=== PATIENT | male | born 1995 | race American Indian/Alaskan Native ===

== ENCOUNTER 2017-03-20 12:50 | Emergency (ER) | payer BC, OTHER ==
--- NOTE | 2017-03-20 14:05 | EDM.PDOC ---
ED HPI GENERAL MEDICAL PROBLEM - General Chief Complaint: Genitourinary Problem Stated Complaint: PAIN [id number] Time Seen by Provider: 03/20/17 14:05 Source of Information: Reports: Patient History Limitations: Reports: No Limitations - History of Present Illness INITIAL COMMENTS - FREE TEXT/NARRATIVE: pt states that he is having severe burning with urination. States that he was seen at the clinic on Wednesday and given a shot and 2 pills but on his symptoms became worse. c/o now that he has to "hold open the hole" in order to urinate. Onset: Gradual Onset Date: 03/17/17 Duration: Getting Worse Location: Reports: Pelvis Quality: Reports: Burning Severity: Severe Improves with: Reports: None Worsens with: Reports: Other (urination) Associated Symptoms: Reports: Malaise Penis Pain Score (Numeric/FACES): 10 - Related Data Allergies Allergy/AdvReac Type Severity Reaction Status Date / Time No Known Allergies Allergy Verified 03/20/17 13:34 Home Meds: Home Meds . [No Known Home Meds] 12/05/15 [History] Past Medical History - Past Health History Medical/Surgical History: Denies Medical/Surgical History - Infectious Disease History Infectious Disease History: Reports: None Social & Family History - Tobacco Use Smoking Status *Q: Never Smoker - Caffeine Use Caffeine Use: Reports: None - Recreational Drug Use Recreational Drug Use: No ED ROS GENERAL - Review of Systems Review Of Systems: See Below : Reports: Discharge, Dysuria, Pain ED EXAM, RENAL/ - Physical Exam Exam: See Below Exam Limited By: No Limitations General Appearance: Alert, WD/WN, No Apparent Distress (Male) Exam: No Hernia, Normal Inspection, Normal Prostate, Circumcised, Penile Lesions (2 small ulcers noted to left groin. small lesion noted to upper right groin area), Urethral Discharge Course - Vital Signs Text/Narrative:: BP 116/62 HR 96, T 98 Last Recorded V/S: Last Vital Signs Temp 99.9 F 03/20/17 15:30 Pulse 98 03/20/17 15:30 Resp 16 03/20/17 15:30 BP 119/62 03/20/17 15:30 Pulse Ox 98 03/20/17 15:30 - Orders/Labs/Meds Labs: Laboratory Tests 03/20/17 Range/Units 13:02 Urine Color Yellow (YELLOW) Urine Appearance Cloudy (CLEAR) Urine pH 8.5 (5.0-9.0) Ur Specific [place] 1.020 (1.005-1.030) Urine Protein 100 H (NEGATIVE) Urine Glucose (UA) Negative (NEGATIVE) Urine Ketones 40 H (NEGATIVE) Urine Occult Blood Trace-intact H (NEGATIVE) Urine Nitrite Negative (NEGATIVE) Urine Bilirubin Small H (NEGATIVE) Urine Urobilinogen 4.0 H (0.2-1.0) mg/dL Ur Leukocyte Esterase Trace H (NEGATIVE) Urine RBC 5-10 H /HPF Urine WBC >100 H (0-5/HPF) /HPF Ur Epithelial Cells Rare /HPF Urine Bacteria Few (0-FEW/HPF) /HPF Urine Mucus Moderate H /LPF - Re-Assessments/Exams Free Text/Narrative Re-Assessment/Exam: 03/20/17 15:25 UA reveal UTI, will treat and have pt follow up in clinic in 4-7 days Departure - Departure Time of Disposition: 15:26 Disposition: Home, Self-Care 01 Condition: Good Clinical Impression: UTI, Urinary tract infectious disease - Discharge Information Instructions: Urinary Tract Infection, Adult, [id number] Forms: ED Department Discharge Additional Instructions: Take medication for UTI and chancroid. Return in 4-7 days to clinic for re- evaluation. You may bring in your results of STI testing if you want
[2017-03-20 15:31] VITALS: BP 119/62
== END 2017-03-20 15:42 | disposition home or self-care (01) ==
LOC: DL.ED 12:50
DX: N39.0 Urinary tract infection, site not specified (principal)
CPT/HCPCS: 81001; 99283

== ENCOUNTER 2020-02-27 11:24 | Emergency (ER) | payer OTHER | END 2020-02-27 12:01 | disposition left against medical advice (07) | LOC: DL.ED 11:24 | DX: Z53.21 Procedure and treatment not carried out due to patient leaving prior to being seen by health care provider (principal) ==

== ENCOUNTER 2020-02-27 16:58 | Emergency (ER) | payer OTHER ==
[2020-02-27 17:20] VITALS: BP 142/82; PULSE 80
[2020-02-27] MEDS ORDERED: Bacitracin Oint 1 GM U/D Packet TOP ONE (17:39)
[2020-02-27] MEDS ORDERED: Lidocaine 1% 30 ML SDV INJECT ONE (17:39)
--- NOTE | 2020-02-27 17:56 | EDM.PDOC ---
ED HPI GENERAL MEDICAL PROBLEM - General Chief Complaint: Laceration Stated Complaint: CUT ON RIGHT KNEE Time Seen by Provider: 02/27/20 17:40 Source of Information: Reports: Patient History Limitations: Reports: No Limitations - History of Present Illness INITIAL COMMENTS - FREE TEXT/NARRATIVE: This 24 yo male patient reports to the ED with a laceration to his right thigh. The patient reports he tripped on a yard drag this morning. The patient cleaned the wound with peroxide and a bandage between the time of the incident and the visit. Onset: Today Onset Date: 02/27/20 Onset Time: 11:00 Duration: Other Location: Reports: Lower Extremity, Right Quality: Reports: Other Severity: Mild Improves with: Reports: None Worsens with: Reports: None Context: Reports: Other Associated Symptoms: Reports: No Other Symptoms - Related Data Allergies Allergy/AdvReac Type Severity Reaction Status Date / Time No Known Allergies Allergy Verified 02/27/20 17:20 Home Meds: Home Meds . [No Known Home Meds] 12/05/15 [History] Past Medical History - Past Health History Medical/Surgical History: Denies Medical/Surgical History HEENT History: Reports: None Cardiovascular History: Reports: None Respiratory History: Reports: None Gastrointestinal History: Reports: None Genitourinary History: Reports: None Musculoskeletal History: Reports: None Neurological History: Reports: None Psychiatric History: Reports: None Endocrine/Metabolic History: Reports: None Hematologic History: Reports: None Immunologic History: Reports: None Oncologic (Cancer) History: Reports: None Dermatologic History: Reports: None - Infectious Disease History Infectious Disease History: Reports: None - Past Surgical History Head Surgeries/Procedures: Reports: None Social & Family History - Family History Family Medical History: Noncontributory - Tobacco Use Smoking Status *Q: Never Smoker - Caffeine Use Caffeine Use: Reports: Tea - Recreational Drug Use Recreational Drug Use: No ED ROS GENERAL - Review of Systems Review Of Systems: Comprehensive ROS is negative, except as noted in HPI. ED EXAM, SKIN/RASH Exam: See Below Exam Limited By: No Limitations General Appearance: Alert, WD/WN, No Apparent Distress Eye Exam: Bilateral Eye: EOMI, Normal Inspection, PERRL Ears: Normal External Exam, Normal Canal, Hearing Grossly Normal, Normal TMs Nose: Normal Inspection, Normal Mucosa, No Blood Throat/Mouth: Normal Inspection, Normal Lips, Normal Teeth, Normal Gums, Normal Oropharynx, Normal Voice, No Airway Compromise Head: Atraumatic, Normocephalic Neck: Normal Inspection, Supple, Non-Tender, Full Range of Motion Respiratory/Chest: No Respiratory Distress, Lungs Clear, Normal Breath Sounds, No Accessory Muscle Use, Chest Non-Tender Cardiovascular: Normal Peripheral Pulses, Regular Rate, Rhythm, No Edema, No Gallop, No JVD, No Murmur, No Rub GI/Abdominal: Normal Bowel Sounds, Soft, Non-Tender, No Organomegaly, No Distention, No Abnormal Bruit, No Mass (Male) Exam: Deferred Rectal (Males) Exam: Deferred Back Exam: Normal Inspection, Full Range of Motion, NT Extremities: Normal Inspection, Normal Range of Motion, Non-Tender, No Pedal Edema, Normal Capillary Refill Neurological: Alert, Oriented, CN II-XII Intact, Normal Cognition, Normal Gait, Normal Reflexes, No Motor/Sensory Deficits Psychiatric: Normal Affect, Normal Mood Skin: Warm, Dry, Wound/Incision Location, Skin: Lower Extremity, Right Characteristics: Linear Lymphatic: No Adenopathy ED SKIN PROCEDURES - Laceration/Wound Repair Right Middle Thigh Appearance: Subcutaneous Distal NVT: Neuro & Vascular Intact Anesthetic Type: Local Local Anesthesia - Lidocaine (Xylocaine): 1% Plain Local Anesthetic Volume: 3cc Skin Prep: Chlorhexidine (Hibiciens), Saline Exploration/Debridement/Repair: Wound Explored, In a Bloodless Field, No Foreign Material Found Closed with: Sutures Lac/Wound length In cm: 2.0 Suture Size: 4-0 Suture Type: Prolene, Interrupted, Simple Drain Placement: No Sterile Dressing Applied: Provider Tetanus Status Addressed: Yes Complications: No Course - Vital Signs Last Recorded V/S: Last Vital Signs Temp 36.9 C 02/27/20 17:19 Pulse 80 02/27/20 17:19 Resp 16 02/27/20 17:19 BP 142/82 H 02/27/20 17:19 Pulse Ox 99 02/27/20 17:19 - Orders/Labs/Meds Meds: Medications Discontinued Medications Generic Name Dose Route Start Last Admin Trade Name Freq PRN Reason Stop Dose Admin Bacitracin 1 dose 02/27/20 17:39 Bacitracin Oint 1 Gm TOP 02/27/20 17:40 ONETIME ONE Lidocaine HCl 30 ml 02/27/20 17:39 Xylocaine-Mpf 1% INJECT 02/27/20 17:40 ONETIME ONE Departure - Departure Time of Disposition: 17:53 Disposition: Home, Self-Care 01 Condition: Fair Clinical Impression: Laceration of right thigh Qualifiers: Encounter type: initial encounter Qualified Code(s): S71.111A - Laceration without foreign body, right thigh, initial encounter - Discharge Information *PRESCRIPTION DRUG MONITORING PROGRAM REVIEWED*: Not Applicable *COPY OF PRESCRIPTION DRUG MONITORING REPORT IN PATIENT CURLY: Not Applicable Instructions: Laceration Care, Adult, [id number] Forms: ED Department Discharge Care Plan Goals: The patient was advised of the examination results during the visit. The laceration margins were well approximated during the visit. The patient should keep the area clean and dry over the next 24 hours. The patient should have the sutures removed in about 10-14 days. If the patient has any additional symptoms or concerns, the patient should either return to the emergency department or follow-up with his primary care facility. Sepsis Event Note - Evaluation Sepsis Screening Result: No Definite Risk - Focused Exam Vital Signs: Vital Signs Temp Pulse Resp BP Pulse Ox 02/27/20 17:19 36.9 C 80 16 142/82 H 99 Date Exam was Performed: 02/27/20 Time Exam was Performed: 17:56
== END 2020-02-27 18:01 | disposition home or self-care (01) ==
LOC: DL.ED 16:58
DX: S71.111A Laceration without foreign body, right thigh, initial encounter (principal); W01.10XA Fall on same level from slipping, tripping and stumbling with subsequent striking against unspecified object, initial encounter; Y92.096 Garden or yard of other non-institutional residence as the place of occurrence of the external cause
CPT/HCPCS: 12001; 99282; J2001

== ENCOUNTER 2022-10-16 13:29 | Emergency (ER) | payer OTHER ==
[2022-10-16] MEDS ORDERED: Lidocaine 1% 10 ML MDV INJECT ONE (13:48)
[2022-10-16 13:57] VITALS: BP 102/84; PULSE 61
== END 2022-10-16 14:47 | disposition home or self-care (01) ==
LOC: DL.ED 13:29
DX: S68.117A Complete traumatic metacarpophalangeal amputation of left little finger, initial encounter (principal); W23.1XXA Caught, crushed, jammed, or pinched between stationary objects, initial encounter
CPT/HCPCS: 64450; 73120-LT; 99283; J3490

== ENCOUNTER 2023-06-19 02:50 | Emergency (ER) | payer OTHER ==
[2023-06-19] MEDS ORDERED: Sodium Chloride 0.9% 10 ML Syringe FLUSH PRN (02:59)
[2023-06-19] MEDS ORDERED: Lactated Ringers 1,000 ML IV ONE (03:02)
[2023-06-19 03:14] LABS: HEMATOCRIT 42.5 % (40.0-54.0); HEMOGLOBIN 14.1 g/dL (14.0-18.0); MEAN CORPUSCULAR HEMOGLOBIN 29.9 pg (27.0-34.0); MEAN CORPUSCULAR HGB CONC 33.2 g/dL (33.0-35.0); PLATELET COUNT,PLT 217 10^3/uL (150-450); RED BLOOD CELL COUNT 4.72 10^6/uL (4.6-6.2)
[2023-06-19 03:24] LABS: BASOPHILS PERCENT AUTO 0.2 % (0.0-1.0); EOSINOPHILS PERCENT AUTO 1.6 % (1.0-3.0); LYMPHOCYTES PERCENT AUTO 24.9 % (20.5-50.1); MONOCYTES PERCENT AUTO 9.4 % (2-8); NEUTROPHILS PERCENT AUTO 63.9 % (42.2-75.2)
[2023-06-19 03:40] LABS: BAND PERCENT MAN 7 %; EOSINOPHILS PERCENT MAN 2 % (1-3); LYMPHOCYTES PERCENT MAN 23 % (20-50); MONOCYTES PERCENT MAN 5 % (2-8); SEG NEUTROPHILS PERCENT MAN 63 % (42-75)
[2023-06-19 03:41] LABS: A/G RATIO 0.9; ALANINE AMINOTRANSFERASE,ALT 56 U/L (16-63); ALBUMIN 3.7 g/dL (3.4-5.0); ALKALINE PHOSPHATASE 114 U/L (46-116); ANION GAP 17.1 mEq/L (7-13); ASPARTATE AMNIOTRANSFERASE,AST 55 U/L (15-37); BILIRUBIN TOTAL 0.3 mg/dL (0.2-1.0); BLOOD UREA NITROGEN,BUN 10 mg/dL (7-18); BUN/CREATININE RATIO 11.2 (No establ ref range); CALCIUM 8.5 mg/dL (8.5-10.1); CARBON DIOXIDE,CO2 25 mmol/L (21-32); CHLORIDE,CL 103 mmol/L (98-107); CREATININE 0.89 mg/dL (0.70-1.30); ETHANOL BLOOD MEDICAL 202 mg/dL (0); GLUCOSE RANDOM 125 mg/dL (70-99); POTASSIUM,K 4.1 mmol/L (3.5-5.1); PROTEIN TOTAL,TP 7.6 g/dL (6.4-8.2); SODIUM,NA 141 mmol/L (136-145)
[2023-06-19 03:42] LABS: ESTIMATED GFR 120 mL/min (>=60)
[2023-06-19 05:23] LABS: APPEARANCE,URINE CLEAR (CLEAR); BILIRUBIN,URINE NEGATIVE (NEGATIVE); COLOR,URINE YELLOW (YELLOW); GLUCOSE,URINE NEGATIVE (NEGATIVE); KETONES,URINE NEGATIVE (NEGATIVE); LEUKOCYTE ESTERASE,URINE NEGATIVE (NEGATIVE); NITRITE,URINE NEGATIVE (NEGATIVE); OCCULT BLOOD,URINE TRACE-INTACT (NEGATIVE); PROTEIN,URINE NEGATIVE (NEGATIVE); UROBILINOGEN,URINE 0.2 mg/dL (0.2-1.0)
[2023-06-19 05:25] LABS: AMPHETAMINES,URINE NEGATIVE (NEGATIVE); BARBITURATES,URINE NEGATIVE (NEGATIVE); BENZODIAZEPINE,URINE NEGATIVE (NEGATIVE); MDMA (ECSTASY), URINE NEGATIVE (NEGATIVE); METHADONE,URINE NEGATIVE (NEGATIVE); METHAMPHETAMINES,URINE NEGATIVE (NEGATIVE); OPIATES,URINE NEGATIVE (NEGATIVE); OXYCODONE,URINE NEGATIVE (NEGATIVE); PHENCYCLIDINE,URINE NEGATIVE (NEGATIVE); TCA,URINE NEGATIVE (NEGATIVE)
[2023-06-19] MEDS ORDERED: fentaNYL 100 MCG/2 ML SDV IVPUSH ONE (05:25)
[2023-06-19 05:32] LABS: BACTERIA,URINE OCCASIONAL /HPF (0-FEW/HPF); EPITHELIAL CELLS,URINE FEW /HPF (NOT SEEN); RBC,URINE 0-5 /HPF (0-5); WBC,URINE 0-5 /HPF (0-5/HPF)
[2023-06-19 05:33] LABS: MUCUS,URINE RARE /LPF (NOT SEEN)
== END 2023-06-19 06:15 ==
LOC: DL.ED 02:50
DX: S12.301A Unspecified nondisplaced fracture of fourth cervical vertebra, initial encounter for closed fracture (principal); S12.601A Unspecified nondisplaced fracture of seventh cervical vertebra, initial encounter for closed fracture; S42.112A Displaced fracture of body of scapula, left shoulder, initial encounter for closed fracture; F10.920 Alcohol use, unspecified with intoxication, uncomplicated; V87.7XXA Person injured in collision between other specified motor vehicles (traffic), initial encounter
CPT/HCPCS: 36415; 70450; 70486; 71250; 72125; 73030; 73562; 74176; 80053; 80305; 80307; 81001; 82947; 85025; 93005; 93010; 96374; 99284; 99285; J3010; J7120; J3490